=== PATIENT | male | born 1955 | race Two or more races ===

== ENCOUNTER 2016-09-28 10:45 | Day surgery (SDC) | payer OTHER ==
[2016-09-28 11:34] VITALS: BMI 32.5
[2016-09-28] MEDS ORDERED: PROPOFOL 20 ML ONE (11:53)
[2016-09-28 12:36] VITALS: TEMP 98.6
[2016-09-28 13:23] VITALS: BP 143/90; PULSE 65
== END 2016-09-28 13:23 | disposition home or self-care (01) ==
LOC: JASU-ENDO 10:45
PROVIDERS: ATTEND Internal Medicine Gastroenterology
PROC: 0DJD8ZZ Inspection of Lower Intestinal Tract, Via Natural or Artificial Opening Endoscopic (ICD-10-PCS; principal; 2016-09-28 11:30)
DX: Z12.11 Encounter for screening for malignant neoplasm of colon (principal); K57.30 Diverticulosis of large intestine without perforation or abscess without bleeding

== ENCOUNTER 2016-10-05 09:25 | Day surgery (SDC) | payer OTHER ==
[2016-10-05 10:06] VITALS: BMI 32.5
[2016-10-05] MEDS ORDERED: PROPOFOL 20 ML ONE ×3 (10:08)
[2016-10-05] MEDS ORDERED: LIDOCAINE HCL/PF 2% SDV 5ML VIAL ONE (10:09)
[2016-10-05 12:01] VITALS: TEMP 97.8
[2016-10-05 15:45] VITALS: BP 155/86; PULSE 63
--- NOTE | 2016-10-06 11:42 | PATH ---
Surgical Pathology Report Patient Name: BEN RUBIO [facility]. Rec. #: [id number] /Age/Gender: 1955 (Age: 61) / M Account: [id number] Location: U-ENDOSCOPY Taken: 10/05/2016 Received: 10/05/2016 Reported: 10/06/2016 Physicians: Barron Levy M.D. Specimen(s) Received A: BX BODY OF STOMACH POLYP B: BX NODULAR BODY C: BX PROXIMAL BODY POLYP Clinical History Anemia Atrophic gastritis, polyps in stomach Final Diagnosis A. STOMACH, POLYP BODY, BIOPSY: GASTRIC ANTRAL MUCOSA WITH MODERATE CHRONIC ACTIVE GASTRITIS AND REACTIVE GASTROPATHY. IMMUNOSTAIN FOR H. PYLORI IS POSITIVE (MANY ORGANISMS). B. STOMACH, BODY, BIOPSY: GASTRIC FUNDIC MUCOSA WITH MILD TO MODERATE CHRONIC ACTIVE GASTRITIS. IMMUNOSTAIN FOR H. PYLORI IS POSITIVE (MODERATE NUMBERS OF ORGANISMS). C. 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 IMMUNOSTAIN FOR H. PYLORI IS POSITIVE (MANY ORGANISMS). Electronically Signed Fernando Hayward M.D. Gross Description A. Received in formalin, labeled "biopsy polyp body of stomach" is a badillo, irregular portion of soft tissue measuring 0.5 cm. in greatest dimension. The specimen is submitted in toto in one cassette. B. Received in formalin, labeled "biopsy nodular body" are 2 badillo, irregular portions of soft tissue averaging 0.4 cm. in greatest dimension. The specimens are submitted in toto in one cassette. C. Received in formalin, labeled "biopsy proximal body polyp" is a badillo, irregular portion of soft tissue measuring 0.4 cm. in greatest dimension. The specimen is submitted in toto in one cassette. 10/05/2016 saudi10/05/2016
== END 2016-10-05 12:45 | disposition home or self-care (01) ==
LOC: JASU-ENDO 09:25
PROVIDERS: ATTEND Internal Medicine Gastroenterology
PROC: 0DB68ZX Excision of Stomach, Via Natural or Artificial Opening Endoscopic, Diagnostic (ICD-10-PCS; principal; 2016-10-05 10:00)
DX: D64.9 Anemia, unspecified (principal); K31.7 Polyp of stomach and duodenum; K31.89 Other diseases of stomach and duodenum
CPT/HCPCS: 88305-TC; 88342-TC